=== PATIENT | female | born 2000 | race Caucasian/White ===

== ENCOUNTER 2022-10-20 21:19 | Emergency (ER) | payer OTHER ==
[~2022-10-20] VITALS: Ht 180.3 cm; Wt 52.2 kg
[2022-10-20] MEDS ORDERED: ATIVAN0.5 M1 PO (21:30)
[2022-10-20] MEDS ORDERED: IBU800 MG PO (21:30)
[2022-10-20] MEDS ORDERED: TIVORBEX20 MG PO (21:31)
[2022-10-20] MEDS ORDERED: METHOCARBAMOL500 MG PO (21:31)
== END 2022-10-21 05:19 | disposition home or self-care (01) ==
LOC: ER 21:19
DX: R51.9 Headache, unspecified (principal); X58.XXXD Exposure to other specified factors, subsequent encounter